=== PATIENT | male | born 1990 | race Caucasian/White ===

== ENCOUNTER 2017-03-13 21:37 | Emergency (ER) | payer OTHER ==
[~2017-03-13] VITALS: Ht 190.5 cm; Wt 72.6 kg
[~2017-03-13 21:37] MED LIST: AMOXICILLIN 50500 M1 PO; APAP/CODEINE ELI5 M1 PO; APAP500 PO; IBUPROFEN 600600 M1 PO; NOHOMEMEDICATIONS; NORCO 5-325 TA1 EACH PO; OMNICEF250 MG/5 M PO; PENICILLIN VK500 M1 PO; PENICILLIN VK500 MG PO; TYLENOL325 MG PO; ULTRAM 50MG TAB50 MG PO
[2017-03-13] MEDS ORDERED: BACTRIM DS TAB1 EACH PO (22:55)
[2017-03-13 23:10] VITALS: BP 112/64
== END 2017-03-13 23:24 | disposition home or self-care (01) ==
LOC: ER 21:37
DX: L03.012 Cellulitis of left finger (principal); F17.210 Nicotine dependence, cigarettes, uncomplicated; F10.99 Alcohol use, unspecified with unspecified alcohol-induced disorder; Z88.5 Allergy status to narcotic agent; Z88.6 Allergy status to analgesic agent; Z88.8 Allergy status to other drugs, medicaments and biological substances

== ENCOUNTER 2017-04-10 23:08 | Emergency (ER) | payer OTHER ==
[~2017-04-10] VITALS: Ht 190.5 cm; Wt 74.8 kg
[~2017-04-10 23:08] MED LIST changes: +BACTRIM DS TAB1 EACH PO
[2017-04-10] MEDS ORDERED: IBUPROFEN 400400 M2 PO (23:36)
[2017-04-11] MEDS ORDERED: FLONASE 0.05%50 MCG NASAL (00:11)
[2017-04-11 00:55] VITALS: BP 119/80
== END 2017-04-11 00:57 | disposition home or self-care (01) ==
LOC: ER 23:08
DX: J06.9 Acute upper respiratory infection, unspecified (principal); F17.210 Nicotine dependence, cigarettes, uncomplicated; Z88.5 Allergy status to narcotic agent; Z88.6 Allergy status to analgesic agent; Z88.8 Allergy status to other drugs, medicaments and biological substances